=== PATIENT | female | born 1955 | race Caucasian/White ===

== ENCOUNTER 2017-02-21 13:27 | Emergency (ER) | payer MEDICAID ==
[~2017-02-21] VITALS: Ht 157.5 cm; Wt 81.6 kg
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
--- NOTE | 2017-02-21 13:55 | NUR ---
RASHI ANDINO AT BEDSIDE FOR EVAL.
--- NOTE | 2017-02-21 15:45 | NUR ---
pt TO RADIOLOGY FOR C SPINE CT SCAN VIA [facility].
--- NOTE | 2017-02-21 17:13 | NUR ---
soft collar applied. Patient discharged to home in stable condition. Written and verbal after care instructions given. Patient verbalizes understanding of instruction.
--- NOTE | 2017-02-21 17:14 | NUR ---
Patient discharged to home in stable condition. Written and verbal after care instructions given. Patient verbalizes understanding of instruction.
[2017-02-21 17:17] VITALS: BP 122/87
== END 2017-02-21 17:18 | disposition home or self-care (01) ==
LOC: ER 13:30
DX: R51 Headache (principal); R11.0 Nausea; M54.2 Cervicalgia; M79.605 Pain in left leg
CPT/HCPCS: 72040; 99284; A4606; Q0162; Z7610